=== PATIENT | female | born 1935 | race Caucasian/White ===

== ENCOUNTER → 2024-02-26 12:37 | Outpatient (REF) | payer OTHER, SELFPAY | LOC: HWRCS 12:37 | PROVIDERS: ATTENDING PHYSICIAN Internal Medicine Cardiovascular Disease; FAMILY PHYSICIAN Family Medicine | DX: I34.0 Nonrheumatic mitral (valve) insufficiency (principal) | CPT/HCPCS: 93306 ==

== ENCOUNTER → 2024-06-18 11:53 | Outpatient (REF) | payer OTHER, SELFPAY | LOC: HWRAD 11:53 | PROVIDERS: ATTENDING PHYSICIAN Family Medicine | DX: M25.572 Pain in left ankle and joints of left foot (principal); M79.672 Pain in left foot; M79.605 Pain in left leg | CPT/HCPCS: 73590; 73610; 73630 ==

== ENCOUNTER → 2024-06-24 13:07 | Outpatient (REF) | payer OTHER, SELFPAY | LOC: RAD 13:07 | PROVIDERS: ATTENDING PHYSICIAN Internal Medicine Cardiovascular Disease; FAMILY PHYSICIAN Family Medicine | DX: M79.605 Pain in left leg (principal); M79.604 Pain in right leg; R60.0 Localized edema | CPT/HCPCS: 93925; 93971 ==

== ENCOUNTER 2025-01-12 23:09 | Inpatient (IN) | payer OTHER, SELFPAY ==
[2025-01-12] VITALS (8 sets, daily range): BP systolic 88–207; BP diastolic 39–73
--- NOTE | 2025-01-12 19:58 | ED.GENMED ---
History of Present Illness
<Shaquille Gar PA-C - Last Filed: 01/12/25 23:20>
General
Chief Complaint: Fall
Time Seen by Provider: 01/12/25 19:57
History of Present Illness
History of Present Illness:
89-year-old female presents to the emergency department for evaluation of right hip and leg pain after a fall, was attempting to twist her body when her slipper got stuck on the ground and she fell, striking her buttocks on the ground. No head
strike. Denies headaches or loss of consciousness. Does not take blood thinners. Having intense pain at this time
Past History
<Shaquille Gar PA-C - Last Filed: 01/12/25 23:20>
Past History
ED Past Medical History: CAD, HTN, Hypothyroidism and Other (gout, renal stones)
ED Past Surgical History: Cardiac and Orthopedic
Social History
Tobacco: Non-smoker
Alcohol: None
Drug: None
Personal: Single
Living: with family
Employment: Not employed
Family History
Family History: Other (No significant)
Review of Systems
<Shaquille Gar PA-C - Last Filed: 01/12/25 23:20>
Review of Systems
Allergies reviewed?: Yes
All Other Systems: ROS reviewed and negative except as documented in HPI and ROS
Phy Exam
<Shaquille Gar PA-C - Last Filed: 01/12/25 23:20>
Physical Exam
Physical Exam:
GEN: Well appearing, NAD, WDWN
HEENT: Oral mucosa moist, no scleral icterus
Cardiac: Regular rate
Lung: No respiratory distress, no tachypnea
MSK: Shortening and external rotation of the right lower extremity, right dorsalis pedis pulse is strong, sensation of the right lower extremity intact fully
Skin: Good color, no pallor or jaundice, no rashes
Neuro: AO x3, moves all extremities freely
Psych: Calm, cooperative
Course
<Shaquille Gar PA-C - Last Filed: 01/12/25 23:20>
Orders/Labs/Results
Orders:
Orders
01/12/25 19:57
HYDROmorphone [Dilaudid] 0.5 mg IV NOW STA
CR Hip - RT w/wo Pel 2-3 Vw* Urgent
Comment:
Reason For Exam: fall, R hip injury
Include a pelvis x-ray?: Yes
01/12/25 20:08
Complete Blood Count/With Diff Urgent
01/12/25 20:26
HYDROmorphone [Dilaudid] 0.5 mg IV NOW STA
01/12/25 20:29
Ondansetron Injectable [Zofran] 4 mg IV NOW STA
01/12/25 20:42
Basic Metabolic Panel Urgent
01/12/25 21:07
0.9% Sodium Chloride 500 ml [Nss] 500 ml IV BOLUS
01/12/25 22:20
Admit/Transfer Patient As Directed
Co-Sign Provider:
Level of Care: Inpatient admission
Assign to:: Medical/Surgical
Physician / Group: lee
Diagnosis: right intertrochanteric fracture
Reason for Hospitalization: right intertrochanteric fracture
Expected length of stay greater than two midnights?: Yes
ELOS- Estimated Length of Stay in days: 3
I certify the patient meets the requirements for IP care: Yes
PRN Pain Medication Management As Directed
May give lesser potent ordered pain med per pt: Yes
preference::
Protocol:: Medication orders for pain may be administered in a
manner that supports deferring to patient preference
when the pt is:
- Requesting an ordered lesser potent pain medication.
Least to most potent pain medications are defined
as: acetaminophen < NSAID < tramadol < opioids
(morphine, oxycodone, hydromorphone).
- Requesting a lesser dose of the same medication IF
ORDERED.
- Requesting a less intrusive route of administration
if both routes are prescribed by the provider (PO <
IV).
01/12/25 22:21
Code Status As Directed
Resuscitation Status: Limited DNR
Limited DNR: -No intubation
01/12/25 22:29
EKG [Electrocardiogram (*1)] Stat
Reason for Study: PreOp
EKG [Electrocardiogram (*1)] Urgent
Reason for Study: PreOp
Potassium Urgent
01/12/25 22:53
CARDIOLOGY CONSULT Routine
Consulting Provider: Matthew Shah
Was physician already notified: Yes
Reason for consult: preop clearance
Abnormal Lab Results
01/12/25 01/12/25
20:08 20:42
WBC 11.3 H 10^3/uL
(4.8-10.8)
RBC 3.49 L 10^6/uL
(4.20-5.40)
Hgb 11.2 L g/dL
(12.0-16.0)
Hct 31.6 L %
(37.0-47.0)
MCH 32.1 H pg
(27.0-31.0)
Abs Immat Gran (auto) 0.1 H 10^3/uL
(0-0.05)
Absolute Neuts (auto) 9.3 H 10^3/uL
(1.4-6.5)
Absolute Monos (auto) 0.7 H 10^3/uL
(0.1-0.6)
Neutrophils % 82.3 H %
(42.2-75.2)
Lymphocytes % 10.3 L %
(20.5-51.1)
Sodium 131 L mmol/L
(135-145)
BUN 18 H mg/dl
(7-17)
Glucose 131 H mg/dl
(70-99)
Calcium 8.2 L mg/dl
(8.4-10.2)
01/12/25 20:08
Vital Signs
Initial and Last Documented VS:
Initial Vital Signs
Temp Pulse Resp BP Pulse Ox
97.4 F 78 16 207/73 97
01/12/25 19:34 01/12/25 19:34 01/12/25 19:34 01/12/25 19:34 01/12/25 19:34
Last Documented Vital Signs
Temp Pulse Resp BP Pulse Ox
97.5 F 90 22 126/46 98
01/12/25 22:40 01/12/25 22:40 01/12/25 22:40 01/12/25 22:40 01/12/25 22:40
<Ori Gustafson, DO - Last Filed: 01/12/25 22:23>
Orders/Labs/Results
Orders:
Orders
01/12/25 19:57
HYDROmorphone [Dilaudid] 0.5 mg IV NOW STA
CR Hip - RT w/wo Pel 2-3 Vw* Urgent
Comment:
Reason For Exam: fall, R hip injury
Include a pelvis x-ray?: Yes
01/12/25 20:08
Complete Blood Count/With Diff Urgent
01/12/25 20:26
HYDROmorphone [Dilaudid] 0.5 mg IV NOW STA
01/12/25 20:29
Ondansetron Injectable [Zofran] 4 mg IV NOW STA
01/12/25 20:42
Basic Metabolic Panel Urgent
01/12/25 21:07
0.9% Sodium Chloride 500 ml [Nss] 500 ml IV BOLUS
01/12/25 22:20
Admit/Transfer Patient As Directed
Co-Sign Provider:
Level of Care: Inpatient admission
Assign to:: Medical/Surgical
Physician / Group: lee
Diagnosis: right intertrochanteric fracture
Reason for Hospitalization: right intertrochanteric fracture
Expected length of stay greater than two midnights?: Yes
ELOS- Estimated Length of Stay in days: 3
I certify the patient meets the requirements for IP care: Yes
PRN Pain Medication Management As Directed
May give lesser potent ordered pain med per pt: Yes
preference::
Protocol:: Medication orders for pain may be administered in a
manner that supports deferring to patient preference
when the pt is:
- Requesting an ordered lesser potent pain medication.
Least to most potent pain medications are defined
as: acetaminophen < NSAID < tramadol < opioids
(morphine, oxycodone, hydromorphone).
- Requesting a lesser dose of the same medication IF
ORDERED.
- Requesting a less intrusive route of administration
if both routes are prescribed by the provider (PO <
IV).
01/12/25 22:21
Code Status As Directed
Resuscitation Status: Limited DNR
Limited DNR: -No intubation
01/12/25 22:29
EKG [Electrocardiogram (*1)] Stat
Reason for Study: PreOp
EKG [Electrocardiogram (*1)] Urgent
Reason for Study: PreOp
Potassium Urgent
01/12/25 22:53
CARDIOLOGY CONSULT Routine
Consulting Provider: Matthew Shah
Was physician already notified: Yes
Reason for consult: preop clearance
Abnormal Lab Results
01/12/25 01/12/25
20:08 20:42
WBC 11.3 H 10^3/uL
(4.8-10.8)
RBC 3.49 L 10^6/uL
(4.20-5.40)
Hgb 11.2 L g/dL
(12.0-16.0)
Hct 31.6 L %
(37.0-47.0)
MCH 32.1 H pg
(27.0-31.0)
Abs Immat Gran (auto) 0.1 H 10^3/uL
(0-0.05)
Absolute Neuts (auto) 9.3 H 10^3/uL
(1.4-6.5)
Absolute Monos (auto) 0.7 H 10^3/uL
(0.1-0.6)
Neutrophils % 82.3 H %
(42.2-75.2)
Lymphocytes % 10.3 L %
(20.5-51.1)
Sodium 131 L mmol/L
(135-145)
BUN 18 H mg/dl
(7-17)
Glucose 131 H mg/dl
(70-99)
Calcium 8.2 L mg/dl
(8.4-10.2)
01/12/25 20:08
Vital Signs
Initial and Last Documented VS:
Initial Vital Signs
Temp Pulse Resp BP Pulse Ox
97.4 F 78 16 207/73 97
01/12/25 19:34 01/12/25 19:34 01/12/25 19:34 01/12/25 19:34 01/12/25 19:34
Last Documented Vital Signs
Temp Pulse Resp BP Pulse Ox
97.5 F 90 22 126/46 98
01/12/25 22:40 01/12/25 22:40 01/12/25 22:40 01/12/25 22:40 01/12/25 22:40
<Shaquille Gar PA-C - Last Filed: 11/03/25 23:20>
MDM/Problems Addressed
MDM/Problems Addressed:
Imaging reveals a right inner troches fracture, will admit to medicine for further evaluation and management, orthopedics made aware for surgical intervention
<Shaquille Gar PA-C - Last Filed: 01/12/25 23:20>
*Pulse Oximetry
SaO2: 97
Oxygen Mode of Delivery: Room air
Patient hypoxic: no
*Critical Care Note
Total Time (30-74mins, 75-104mins- exclusive of procedures): Not Applicable
ED Attending Note
<Shaquille Gar PA-C - Last Filed: 01/12/25 23:20>
-
Portions of this chart may have been created with voice recognition software.� Occasional wrong word or��sound alike� substitutions may have occurred due to the inherent limitations of voice recognition software.
<Ori Gustafson DO - Last Filed: 01/12/25 22:23>
ED Attending Note
Patient seen and examined by attending physician: Yes
I performed the substantive portion of visit, reviewed & personally made and approve the management plan that is documented in note by myself or KYLEE.: Yes
ED Attending Note:
I evaluated patient at bedside. The patient appeared uncomfortable upon arrival. She is found to have a intertrochanteric fracture. Will be admitted to the hospital.
Discharge Plan
Departure
Patient Disposition: Admit
Date of Disposition: 01/12/25
Time of Disposition: 21:54
Admit to: Med/Surg
Presentation/result/management discussed w/ accepting MD/DO: Hospitalist
Discharge Problem:
Closed intertrochanteric fracture of right femur
Interventions
Interventions:
*Risk Screen - Suicide Last Done: 01/12/25 19:42
*General Assessment Last Done: 01/12/25 19:42
*Neglect/Abuse Screening Last Done: 01/12/25 19:42
*ED- Fall Risk Assessment Last Done: 01/12/25 19:41
*ED COVID-19 Vaccine History Last Done: 01/12/25 19:41
*ED Influenza Vaccine History Last Done: 01/12/25 19:41
*Nursing Disposition Last Done: 01/12/25 22:40
ED-Musculoskeletal Assessment Last Done: 01/12/25 19:43
ED- Neurological Assessment Last Done: 01/12/25 19:43
ED-Skin Assessment Last Done: 01/12/25 19:43
[2025-01-12] MEDS: DILAUDID 0.5 MG IV ×2 (20:09→20:39)
[2025-01-12 20:14] LABS: Hematocrit 31.6 % (37.0-47.0); Hemoglobin 11.2 g/dL (12.0-16.0); Mean Corp Hgb Conc. 35.4 g/dL (33.0-37.0); Mean Corpuscular Volume 90.5 fL (81.0-99.0); Nucleated Red Blood Cells % 0 %; Platelet Count 198 10^3/uL (130-400); Red Cell Dist. Width 13.0 % (11.5-14.5)
[2025-01-12] MEDS: ZOFRAN 4 MG IV (20:40)
[2025-01-12 21:07] LABS: Blood Urea Nitrogen 18 mg/dl (7-17); Calcium 8.2 mg/dl (8.4-10.2); Carbon Dioxide 26 mmol/L (22-30); Chloride 100 mmol/L (98-107); Estimated Creatinine Clearance 46 ml/min; Glucose 131 mg/dl (70-99); Sodium 131 mmol/L (135-145); eGFR > 60.00
[2025-01-12] MEDS: NSS 500 IV (21:08)
--- NOTE | 2025-01-12 21:55 | HPS.HSE ---
Addendum entered and electronically signed by Peter Boyle DO 01/12/25 23:08:
Patient seen and examined independently. Agree with findings and plan as set forth by GLADYS Armenta.
Patient is an 89y F with PMH significant for ASCVD (LAD stent in 2020), HFpEF and hypertension who presents to ED complaining of R hip pain s/p fall. Patient states that she stumbled on the carpet while 'taking a turn' and fell onto her R side.
Patient was unable to get up unassisted and was on the floor for about one hour before help arrived.
In the ED, she complains of significant R hip pain.
Ass;
Right Hip Fracture
Fall at Home
ASCVD
Chronic HFpEF
Chronic Hyponatremia
Benign Hypertension
Plan:
Admit for further evaluation and treatment.
Bedrest, pain control, supportive care.
Ortho consulted for operative repair.
NPO after midnight for possible OR.
Cardiology consulted for pre-op assessment.
Patient with no recent chest pain, exertional dyspnea or other symptoms suggestive of decompensated cardiac status.
Continue usual medications with holding parameters.
Continue ASA uninterrupted.
Original Note:
Family Physician
-
Family Physician: Kathleen Snell
Chief Complaint
-
fall
History of Present Illness
89-year-old female with PMH for CAD,HTN, hypothyroidism, GOUT, renal stones presents to the emergency department for evaluation of right hip and leg pain after a fall. she was taking a turn and stumbled on the carpet fell on her right side. patient
was on the floor for an hour before she got help. denied FAITH, dizzy or syncope. denied fever, chills,chest pain, sob. denied abdominal pain,n,v,d. denied dysuria or hematuria.
right hip fracture. admitting for further management.
Medical History
Past Medical History
Past Medical History: Reports Other
Additional Past Medical History:
renal calculi, osteoporosis, hypo osmolality and hyponatremia, pulmonary HTN, essential HTN, GERD< GOUT, ND, bundle branch block, CAD
Past Surgical History: Reports Other
Additional Past Surgical History:
left hip replacement, left shoulder surgery, cardiac stents
Social History
Tobacco: Non-smoker
Alcohol: None
Drug: None
Family History
Family History: Not pertinent
Allergies / Home Medications
Allergies reflects when Allergies were last updated in [facility].
Home Medications with original date entered in [facility]
Allergy/Medication List:
Allergies
Allergy/AdvReac Type Severity Reaction Status Date / Time
amoxicillin (Amoxicillin) Allergy Unknown Hives Verified 01/12/25 19:42
amlodipine besylate (From Allergy Unknown Verified 01/12/25 19:42
Norvasc)
clindamycin (Clindamycin) Allergy Unknown Verified 01/12/25 19:42
pamabrom (From Midol) Allergy Unknown Verified 01/12/25 19:42
Penicillins Allergy Unknown Verified 01/12/25 19:42
pyrilamine maleate (From Allergy Unknown Verified 01/12/25 19:42
Midol)
Home Medications
torsemide 5 mg tablet 2.5 mg PO QPM Fluid retention/Swelling 08/29/20
aspirin 81 mg chewable tablet 81 mg PO DAILY 09/01/20
atorvastatin 10 mg tablet 10 mg PO HS High cholesterol 07/14/22
cholecalciferol (vitamin D3) 25 mcg (1,000 unit) tablet 25 mcg PO DAILY Supplement 07/14/22
olmesartan 20 mg tablet 20 mg PO BID #0 tabs 07/15/22
doxazosin 1 mg tablet 1 mg PO HS 01/12/25
famotidine 20 mg tablet 20 mg PO PRN PRN Cytokine Release Syndrome 01/12/25
Review of Systems
-
Constitutional: Reports No Symptoms
EENT: Reports No Symptoms
Respiratory: Reports No Symptoms
Cardiac: Reports No Symptoms
Abdomen/GI: Reports No Symptoms
: Reports No Symptoms
Musculoskeletal: Reports Other (right hip pain)
Skin: Reports No Symptoms
Neurological: Reports No Symptoms
Endocrine: Reports No Symptoms
Hematologic/Lymphatic: Reports No Symptoms
Psych: Reports No Symptoms
Physical Exam
Vital Signs
Vital Signs
Temp Pulse Resp BP Pulse Ox
97.4 F 74 14 107/44 95
01/12/25 19:34 01/12/25 21:15 01/12/25 21:15 01/12/25 21:12 01/12/25 21:15
Physical Exam
General: Well Developed, Well Nourished and No Apparent Distress
HEENT: NormoCephalic, Moist mucous membranes and Atraumatic
Respiratory: Clear
Cardiac: S1/S2 and Regular Rhythm; No Murmur or Rub
GI: Soft, Non Tender, Non Distended and Normal Bowel Sounds; No Organomegaly
Rectal: Deferred by Provider
Musculoskeletal: No Clubbing, No Cyanosis, No Edema and Other (shortening and external rotation of the right LE)
Skin: No Rash
Neuro: Nonfocal/grossly intact
Laboratory Results
-
01/12/25 20:08
01/12/25 20:42
Laboratory Results
Total Bilirubin Cancelled 01/12/25 20:42
AST Cancelled 01/12/25 20:42
ALT Cancelled 01/12/25 20:42
Alkaline Phosphatase Cancelled 01/12/25 20:42
Data Reviewed
-
Lab Data: Labs Reviewed by me
Impression/Plan
-
#right intertrochanteric fracture
-Hip x ray pending
-Tylenol, oxy and Dilaudid prn for pain
-will keep NPO after MN
-orthopedics consulted.
#leukocytosis likely stress reaction
-wbc 11.3, patient is afebrile
-ctm
#chronic hyponatremia
-na 131, ctm
#CAD/cardiac stents
-asa,statin continued
#essential HTN
-doxazosin, olmesartan continued
-on Torsemide
#DVT Prophylaxis
-scd
#CODE status
-CPR, no intubation.
[2025-01-13] VITALS (16 sets, daily range): BP systolic 80–172; BP diastolic 40–87; BMI 21.6
[2025-01-13] MEDS: SENOKOT PO ×2 (00:27→08:58)
[2025-01-13] MEDS: COLACE PO ×2 (00:27→08:58)
[2025-01-13] MEDS: TYLENOL PO ×2 (00:55→03:45)
[2025-01-13] MEDS: DILAUDID 0.25 MG IV ×3 (03:37→16:53)
[2025-01-13 04:19] LABS: Potassium 4.0 mmol/L (3.5-5.1)
[2025-01-13 07:56] LABS: Hematocrit 28.7 % (37.0-47.0); Hemoglobin 9.5 g/dL (12.0-16.0); Mean Corp Hgb Conc. 33.1 g/dL (33.0-37.0); Mean Corpuscular Volume 98.3 fL (81.0-99.0); Platelet Count 189 10^3/uL (130-400); Red Cell Dist. Width 13.0 % (11.5-14.5)
--- NOTE | 2025-01-13 08:06 | W.PN.UPDATE ---
Update Note
Progress Note Update
Full ortho consult to be dicatated.
89 year old female who sustained fall onto right hip yesterday.
-X-rays with intertroch fracture.
-Plan for OR today for right hip gamma nail with Dr. Pickard pending cardiac evaluation for risk stratification.
-Consent signed and placed in chart.
-NPO.
-NWB RLE.
-IV abx manager distribution center to OR.
[2025-01-13 08:31] LABS: Blood Urea Nitrogen 17 mg/dl (7-17); Calcium 8.6 mg/dl (8.4-10.2); Carbon Dioxide 29 mmol/L (22-30); Chloride 99 mmol/L (98-107); Estimated Creatinine Clearance 50 ml/min; Glucose 135 mg/dl (70-99); Potassium 4.5 mmol/L (3.5-5.1); Sodium 131 mmol/L (135-145); eGFR > 60.00
[2025-01-13] MEDS: COZAAR 50 MG PO ×2 (08:58→20:07)
[2025-01-13] MEDS: LOW STRENGTH ASPIRIN 81 MG PO (08:58)
[2025-01-13] MEDS: TYLENOL 650 MG PO ×4 (08:58→22:13)
[2025-01-13 10:13] LABS: Iron 40 ug/dl (37-170)
[2025-01-13 10:14] LABS: Troponin I 0.014 ng/ml
[2025-01-13 10:24] LABS: Total Iron Binding Capacity 329 ug/dl (265-497)
[2025-01-13 10:32] LABS: Vitamin D, 25-OH*** 38.3 ng/mL (30-80)
[2025-01-13 10:45] LABS: Cortisol, Random 21.3 ug/dl; TSH 0.66 uIU/ml (0.47-4.68)
[2025-01-13 10:50] LABS: Ferritin 29.2 ng/ml (11.1-264.0)
--- NOTE | 2025-01-13 10:52 | CON.CAR ---
Addendum entered and electronically signed by Gregor Ewing MD 01/13/25 13:33:
I saw and examined the patient.
The Automotive Services Manager's note was reviewed and I agree with the note.
Comment:
GEN: No distress, awake, Ox3
HEENT: supple, anicteric, mmm
LUNGS: CTA, no wheezes/rales
CV: Reg, S1/S2, 1/6 syst LSB, no murmur
ABD: soft, BS+, NT/ND
EXT: no edema
NEURO: Gross non-focal
SKIN: No rash
PLan:
89-year-old female with past medical history of coronary status post STEMI/left circumflex PCI 2020, moderate mitral regurgitation who presents with a fall and right hip fracture. We are asked to evaluate her as a preop evaluation. From a cardiac
standpoint she overall is done well. She has had no chest pain, shortness of breath and denies any syncope. She is a stable from a cardiac standpoint. Her blood pressure has been stable.
EKG normal sinus rhythm with nonspecific T wave abnormalities.
Echo from 2023 with a preserved ejection fraction and moderate mitral digitation.
She has no unstable cardiac symptoms can proceed to get her hip surgery today. She will be moderate risk. She is placed on telemetry post procedure. Continue aspirin
Continue Cozaar, Cardura, and torsemide.
Discussed with family.
Original Note:
Consultation
Consultation Request
Date/Time Consultation Performed: 01/13/25
Requesting Provider: Dr. Erickson
Performing Provider: Deena London PA-C for Dr. Ewing
Reason for Consultation: preop eval
Medical History
-
Chief Complaint: fall with R hip pain
History of Present Illness:
Patient is an 89-year-old female with past medical history of CAD status post STEMI resulting in circumflex PCI 08/2020, moderate MR, history of sinus bradycardia and syncope on beta-sunny, chronic hyponatremia, hypertension, hypercholesterolemia
who presented to [facility] due to a fall. She reports she was turning and fell on the ground. Was unable to get up due to right hip pain. Was lying on the floor for approximately 1 hour prior to getting help. On arrival noted to have right femur
fracture with plan for OR today. Cardiology consulted for preoperative evaluation. She denies any chest pain, palpitations, or shortness of breath above baseline. Denies recent medication changes.
PMH:
CAD/STEMI s/p Xience PCI mid Circ 08/29/20
Mod MR
History of sinus bradycardia/syncope on beta-sunny
Chronic hyponatremia with history of SIADH
Hypertension
Hypercholesterolemia
Hypothyroidism
Gout
History of renal calculus
Past Medical History
Past Medical History: CAD (Myocardial infarction, STEMI, August 2020 with LAD PCI), HTN, Hypercholesterolemia, Valvular Disease (Moderate mitral regurgitation) and Other (Hyponatremia, gout)
Past Surgical History: Orthopedic (hip surgery 2009)
Social History
Tobacco: Non-Smoker
Alcohol: None
Drug: None
Personal:
Living: With Family
Family History
Family History: Hypertension
Allergies / Home Medications
Allergy/AdvReac Type Severity Reaction Status Date / Time
amoxicillin (Amoxicillin) Allergy Unknown Hives Verified 01/12/25 19:42
amlodipine besylate (From Allergy Unknown Verified 01/12/25 19:42
Norvasc)
clindamycin (Clindamycin) Allergy Unknown Verified 01/12/25 19:42
pamabrom (From Midol) Allergy Unknown Verified 01/12/25 19:42
Penicillins Allergy Unknown Verified 01/12/25 19:42
pyrilamine maleate (From Allergy Unknown Verified 01/12/25 19:42
Midol)
�Medication �Instructions �Recorded �Confirmed �Type
torsemide 5 mg tablet 2.5 mg PO QPM Fluid 08/29/20 01/12/25 History
retention/Swelling
aspirin 81 mg chewable tablet 81 mg PO DAILY 09/01/20 01/12/25 Rx
atorvastatin 10 mg tablet 10 mg PO HS High cholesterol 07/14/22 01/12/25 History
cholecalciferol (vitamin D3) 25 25 mcg PO DAILY Supplement 07/14/22 01/12/25 History
mcg (1,000 unit) tablet
olmesartan 20 mg tablet 20 mg PO BID #0 tabs 07/15/22 01/12/25 Rx
doxazosin 1 mg tablet 1 mg PO HS BPH 01/12/25 01/12/25 History
famotidine 20 mg tablet 20 mg PO PRN PRN Cytokine Release 01/12/25 01/12/25 History
Syndrome
Review of Systems
-
History Source: Patient and Family
All other systems: Negative unless noted
Physical Exam
Vital Signs
Temp Pulse Resp BP Pulse Ox
97.9 F 87 16 139/57 99
01/13/25 07:30 01/13/25 07:30 01/13/25 07:30 01/13/25 07:30 01/13/25 07:30
Lab Results
01/13/25 07:26
01/13/25 07:26
Troponin I 0.014 ng/ml 01/13/25 09:22
Physical Exam
General: No Apparent Distress, Comfortable and Other (on supp O2. frail elderly female)
HEENT: Normocephalic, Anicteric and Moist Mucous Membranes
Respiratory: Non Labored Respirations
Cardiac: S1/S2, Regular Rhythm and Murmur
GI: Soft, Non Tender, Non Distended and Normal Bowel Sounds
Musculoskeletal: No Clubbing, No Cyanosis and No Edema
Skin: Warm and Dry
Neuro: AO x 3
Impression / Plan
-
Primary dry pan charger: Dr. Naylor
Assessment:
Fall
R femur fracture
CAD/STEMI s/p Xience PCI mid Circ 08/29/20
Mod MR
History of sinus bradycardia/syncope on beta-sunny
Chronic hyponatremia with history of SIADH
Hypertension
Hypercholesterolemia
Hypothyroidism
Gout
History of renal calculus
Echo 02/26/2024: EF 55 to 60%, no regional wall motion abnormalities noted, moderate MR, mild TR with PAP 20 to 25 mmHg
Plan:
- Patient presents with a fall and found to have right femur fracture on imaging. Ortho following and is plan for OR today. Cardiology consulted for preoperative evaluation
- She is without complaints of chest pain, palpitations, or worsening shortness of breath
- Reviewed results of last echocardiogram 02/2024 with patient/family at bedside 01/13
- EKG 01/12 sinus rhythm with PACs and nonspecific T wave abnormality
- Continue aspirin 81 mg daily. Hemoglobin 9.5, follow
- Follow volume status postoperatively. On torsemide 2.5 mg every afternoon as outpatient
- Given comorbidities, she is felt to be at moderate cardiovascular risk for procedure, however due to necessity/urgency of procedure, risk is not prohibitive. she is okay to proceed with planned right hip repair as scheduled
- Would place on telemetry postoperatively
- Will follow in postop setting
- Discussed with family at bedside
Data Reviewed
-
EKG: Tracing Personally Visualized and interpreted
Radiology: Report Reviewed by me
Medical Tests (Nuc Med, Echo etc): Report Reviewed by me
Labs: Labs Reviewed by me
Old Records: Reviewed
[2025-01-13 11:05] LABS: Vitamin B12 311 pg/ml (239-931)
--- NOTE | 2025-01-13 12:31 | CON.ORTHO ---
Consultation
-
Date/Time Consultation Requested: 01/12/25
Date/Time Consultation Performed: 01/13/25
Requesting Provider: GLADYS Armenta
Performing Provider: Marie Baig PA-C, for Dr. Zachary Pickard
Reason for Consultation: Right hip intertrochanteric fracture
Consultation - Orthopedics
History
HPI: Francine is an 89-year-old female who presented to [facility] emergency department after sustaining a fall onto her right hip. She reports she was going to turn around and fell on the ground. She was unable to get herself up due to
the right hip pain and was lying on the floor for approximately an hour before she received any help. X-rays taken in the emergency department demonstrated a nondisplaced intertrochanteric fracture of her right hip. Our orthopedic team was
consulted and to discuss definitive management of her fracture going forward.
Past medical history: Significant for myocardial infarction, hypertension, hypercholesterolemia, mitral regurgitation, gout, hyponatremia.
Past surgical history: Left hip hemiarthroplasty in 2009.
Social history: Denies tobacco or alcohol use. Lives at home with her daughter in a two-story home.
Review of systems: All systems reviewed and negative except for those mentioned in HPI.
Allergies / Home Medications
Allergy/AdvReac Type Severity Reaction Status Date / Time
amoxicillin (Amoxicillin) Allergy Unknown Hives Verified 01/12/25 19:42
amlodipine besylate (From Allergy Unknown Verified 01/12/25 19:42
Norvasc)
clindamycin (Clindamycin) Allergy Unknown Verified 01/12/25 19:42
pamabrom (From Midol) Allergy Unknown Verified 01/12/25 19:42
Penicillins Allergy Unknown Verified 01/12/25 19:42
pyrilamine maleate (From Allergy Unknown Verified 01/12/25 19:42
Midol)
�Medication �Instructions �Recorded
torsemide 5 mg tablet 2.5 mg PO QPM Fluid 08/29/20
retention/Swelling
aspirin 81 mg chewable tablet 81 mg PO DAILY 09/01/20
atorvastatin 10 mg tablet 10 mg PO HS High cholesterol 07/14/22
cholecalciferol (vitamin D3) 25 25 mcg PO DAILY Supplement 07/14/22
mcg (1,000 unit) tablet
olmesartan 20 mg tablet 20 mg PO BID #0 tabs 07/15/22
doxazosin 1 mg tablet 1 mg PO HS BPH 01/12/25
famotidine 20 mg tablet 20 mg PO PRN PRN Cytokine Release 01/12/25
Syndrome
Vital Signs / Lab Results
Temp Pulse Resp BP Pulse Ox
97.9 F 87 16 139/57 99
01/13/25 07:30 01/13/25 07:30 01/13/25 07:30 01/13/25 07:30 01/13/25 07:30
01/13/25 07:26
01/13/25 07:26
Physical examination: General: Well-developed, well-nourished female in no acute distress at rest. AAO x 4.
HEENT: Atraumatic, normocephalic, neck supple.
Heart: Regular rate and rhythm.
Lungs: Nonlabored breathing on room air. No audible wheezing.
Right hip: Hip is slightly shortened and externally rotated. Range of motion not tested due to known fracture. Calf is soft and nontender palpation. Neurovascular intact distally.
Radiographic studies:
X-rays of the right femur show evidence of a nondisplaced intertrochanteric fracture of the proximal femur
Assessment / Plan
Assessment: Right hip intertrochanteric fracture.
Plan: Unfortunately, Francine sustained a nondisplaced intertrochanteric fracture of her right femur during her fall. We discussed treatment recommendations going forward to include both nonsurgical and surgical interventions. At this time,
recommendation is to proceed with a right hip ORIF with gamma nail. The plan will be to proceed to the OR later today under the direction of Dr. Pickard pending cardiology evaluation. The surgery was explained in detail along with the associated
risks, benefits, and recovery process. Surgical and blood transfusion consents were signed and placed in the patient's chart. She will remain n.p.o. and nonweightbearing on her right lower extremity until surgery. IV antibiotics on-call to the
OR. Patient was in agreement with treatment recommendations and all questions were answered.
--- NOTE | 2025-01-13 14:21 | W.PN.HOSP.TC ---
Today's Communication/Plan
-
Surgery
Assessment / Plan
Assessment / Plan
89-year-old female with right hip pain after a fall she stumbled on a carpet and fell
CVS: S1-S2 normal, Sm at apex.
Chest: CTA B/L
Abdomen: Soft, NT / Bowel sounds present
Extremities: No edema, right leg externally rotated.
# Traumatic and osteoporotic right hip fracture
Orthopedics consulted for surgery
Cardiology consulted for preop evaluation
Update echo
# Anemia-Borderline B 12 and slightly low iron- Add Both.
# Coronary disease-history of STEMI in August 2020 with LAD PCI-continue aspirin, statin
# Chronic HFpEF- Olmesartan , Torsemide as outpatient. Not on a beta-sunny as OP.
# Valvular heart disease-moderate MR
# Pulmonary hypertension
# Chronic hyponatremia- Check Osm Studies, TSH ,Cortisol
# Hypertension-on Doxazosin, Olmesartan
# Hyperlipidemia-Statin
# History of gout
# History of retinal vein occlusion
# GERD-Famotidine
# DVT prophylaxis-SCDs now and chemical prophylaxis after surgery
# Limited DNR
D/W 2 daughters at bed side
D/W case management.
Part of this note was created using voice recognition system. Occasional wrong word or��sound alike� substitutions may have inadvertently occurred due to the inherent limitations of voice recognition software. If noted kindly bring it to my
attention for correction.
Anticipated Discharge: 24 - 48 hours
Subjective/Interval History
-
Date of Service: January 13, 2025
Objective Data
-
Labs:
Laboratory Results
01/13/25 01/13/25
03:51 07:26
WBC 9.0
Hgb 9.5 L
Hct 28.7 L
Plt Count 189
Sodium 131 L
Potassium 4.0 4.5
Chloride 99
Carbon Dioxide 29
BUN 17
Creatinine 0.6
Glucose 135 H
Calcium 8.6
Vital Signs:
Vital Signs
Temp Pulse Resp BP Pulse Ox
97.9 F 87 16 139/57 99
01/13/25 07:30 01/13/25 07:30 01/13/25 07:30 01/13/25 07:30 01/13/25 07:30
--- NOTE | 2025-01-13 14:31 | CM ---
CM reviewed chart, patient seen bedside with two daughters, initial assessment completed.
Patient is an 89-year-old female presents to the emergency department for evaluation of right hip and leg pain after a fall, was attempting to twist her body when her slipper got stuck on the ground and she fell, striking her buttocks on the ground.
Patient for OR hip fracture.
Patient resides with daughter in a two level home, two steps to enter through front door, bedroom on second floor (normal flight of steps up).
Patient has a commode, rollator, quad cane at home, daughters report patient is typically ambulatory without any device.
Patient has had VN in past, [facility].
SNF hx [facility], do no wish to return.
PCP Kathleen Snell, [facility]acy [facility].
Patient denies insecurities at home.
CM discussed SNF for patient upon d/c- family provided with Medicare.gov to look at local facilities/ratings. Daughters discussing [facility], and [facility], will look into additional SNFS
Patient will require PT/OT post OR- will need referrals for SNF.
Plan; OR, SNF upon d.c
--- NOTE | 2025-01-13 15:54 | W.IMMPOSTOP ---
Surgical Immed Post Op Note
-
Primary Surgeon: Melly
Assisting Surgeon: None
Pre-op Diagnosis: Right hip intertrochanteric fracture
Post-op Diagnosis: Same
Procedure Performed: Right hip Gamma nail
Anesthesia Type: General
Specimen / Cultures: None
Estimated Blood Loss: 20cc
Complications: None
Operative Findings: Dictated [id number]
Plan:
- WBAT RLE
- ASA 81 daily for 30 days
- PT/ OT
[2025-01-13] MEDS: ZOFRAN 4 MG IV (16:15)
[2025-01-13] MEDS: DEMADEX 2.5 MG PO (18:23)
[2025-01-13] MEDS: ASPIRIN 325 MG PO (18:25)
[2025-01-13] MEDS: NORMOSOL-R/PLASMALYTE-A 1000 IV (18:31)
[2025-01-13] MEDS: ROXICODONE 5 MG PO (20:06)
[2025-01-13] MEDS: SENOKOT 17.2 MG PO (20:07)
[2025-01-13] MEDS: COLACE 100 MG PO (20:07)
[2025-01-13] MEDS: CARDURA 1 MG PO (21:28)
[2025-01-13] MEDS: ANCEF 5 IV (21:28)
[2025-01-13] MEDS: LIPITOR 10 MG PO (21:29)
[2025-01-13] MEDS: ANESTHETIC LOZENGE 1 LOZENGE PO (22:14)
--- NOTE | 2025-01-13 22:42 | PTCARENOTE ---
Pt attempted to get OOB with staff to void, sitting on the side of the bed, pt reported feeling dizzy. Pt sat for a few minutes but no change so assisted back into bed. Pt became hypotensive 80/40 and with a brief LOC while laying in bed. Pt feet
elevated and began sighing and opening her eyes. Pt reassessed with BP 110/43 HR 63. Pt talking and making needs known. Pt resting in bed @ this time, call layne within reach
[2025-01-14] VITALS (11 sets, daily range): BP systolic 111–138; BP diastolic 40–55
[2025-01-14] MEDS: ANCEF 5 IV (05:26)
[2025-01-14] MEDS: TYLENOL 650 MG PO ×5 (05:26→23:14)
--- NOTE | 2025-01-14 05:53 | W.PN.ORTHO ---
Today's Communication / Plan
-
89F POD 1 right hip cephalomedullary nail fixation with Dr. Pickard
- Weightbearing as tolerated with walker.
- PT/OT/discharge planning
- Dressings are clean dry and intact. No significant hematoma. Hemoglobin at 6.5 today; per primary consideration of transfusion
- Diet and DVT prophylaxis per primary with recommendation of aspirin daily unless recommended otherwise
- Orthopedic surgery will continue to follow
Assessment
.
Distal Motor Intact: Yes
Dressing:
Clean, dry and intact.
Plan
.
Surgery / Date: Right hip CMN with Dr. Pickard 01/13/2025
DVT Prophylaxis: Aspirin
Activity:
Out of bed.
PT/OT
Subjective
.
.:
Patient resting comfortably.
Vital Signs and Labs
.
Vital Signs and Labs:
Temp Pulse Resp BP Pulse Ox
97.8 F 77 17 119/53 100
01/14/25 03:13 01/14/25 03:13 01/14/25 03:13 01/14/25 03:13 01/14/25 03:13
[2025-01-14 07:14] LABS: Hematocrit 19.2 % (37.0-47.0); Hemoglobin 6.5 g/dL (12.0-16.0); Mean Corp Hgb Conc. 33.9 g/dL (33.0-37.0); Mean Corpuscular Volume 96.5 fL (81.0-99.0); Platelet Count 145 10^3/uL (130-400); Red Cell Dist. Width 13.2 % (11.5-14.5)
[2025-01-14 07:28] LABS: Blood Urea Nitrogen 17 mg/dl (7-17); Calcium 8.0 mg/dl (8.4-10.2); Carbon Dioxide 30 mmol/L (22-30); Chloride 99 mmol/L (98-107); Estimated Creatinine Clearance 38 ml/min; Glucose 121 mg/dl (70-99); Potassium 4.3 mmol/L (3.5-5.1); Sodium 129 mmol/L (135-145); eGFR > 60.00
[2025-01-14] MEDS: COZAAR PO (08:17)
[2025-01-14] MEDS: VITAMIN B-12 1000 MCG PO (08:18)
[2025-01-14] MEDS: SENOKOT 17.2 MG PO (08:18)
[2025-01-14] MEDS: NORMOSOL-R/PLASMALYTE-A 1000 IV (08:18)
[2025-01-14] MEDS: MIRALAX 17 GRAMS PO (08:19)
[2025-01-14] MEDS: COLACE 100 MG PO ×2 (08:19→20:36)
[2025-01-14] MEDS: FEOSOL 325 MG PO (08:19)
[2025-01-14] MEDS: ROXICODONE 5 MG PO (08:31)
[2025-01-14] MEDS: ASPIRIN PO (09:44)
--- NOTE | 2025-01-14 11:04 | W.PN.HOSP.TC ---
Today's Communication/Plan
-
Transfuse
Hold antihypertensives because blood pressure is borderline and patient had a presyncopal event last night
Osmolality studies
If blood pressure improves we will give torsemide tonight
Stop IV fluids
Assessment / Plan
Assessment / Plan
89-year-old female with right hip pain after a fall she stumbled on a carpet and fell
CVS: S1-S2 normal, Sm at apex.
Chest: CTA B/L
Abdomen: Soft, NT / Bowel sounds present
Extremities: Right thigh with edema noted. No bleeding noted at the site of surgery
# Traumatic and osteoporotic right hip fracture
Right hip cephalomedullary nail fixation with Dr. Pickard 01/13/25
Weightbearing as tolerated with walker.
# Anemia-Borderline B 12 and slightly low iron-continue supplementation
Acute blood loss anemia secondary to surgery. Patient right thigh is edematous's today
Transfused 2 units of packed red blood cells.
# Coronary disease-history of STEMI in August 2020 with LAD PCI-continue aspirin, statin
# Chronic HFpEF- Olmesartan , Torsemide as outpatient. Not on a beta-sunny as OP. Hold torsemide and olmesartan today secondary to hypotension. If blood pressure improves can give torsemide at nighttime.
# Valvular heart disease-moderate MR
# Pulmonary hypertension
# Chronic hyponatremia- Check Osm Studies, Normal TSH and Cortisol
# Hypertension-Hold Doxazosin, Olmesartan given hypotension
# Hyperlipidemia-Statin
# History of gout
# History of retinal vein occlusion
# GERD-Famotidine
# DVT prophylaxis-SCDs now and chemical prophylaxis after surgery
# Limited DNR
D/W daughter at bed side
D/W RN at bed side
D/W case management.
Part of this note was created using voice recognition system. Occasional wrong word or��sound alike� substitutions may have inadvertently occurred due to the inherent limitations of voice recognition software. If noted kindly bring it to my
attention for correction.
Anticipated Discharge: 24 - 48 hours
Subjective/Interval History
-
Date of Service: January 14, 2025
Objective Data
-
Labs:
Laboratory Results
01/14/25
06:37
WBC 9.3
Hgb 6.5 L* D
Hct 19.2 L*
Plt Count 145 D
Sodium 129 L
Potassium 4.3
Chloride 99
Carbon Dioxide 30
BUN 17
Creatinine 0.8
Glucose 121 H
Calcium 8.0 L
Vital Signs:
Vital Signs
Temp Pulse Resp BP Pulse Ox
98.2 F 80 16 116/43 100
01/14/25 07:00 01/14/25 07:00 01/14/25 07:00 01/14/25 07:00 01/14/25 07:00
I&O
01/13/25 01/14/25 01/15/25
06:59 06:59 06:59
Intake Total 1630 / 1630
Balance 1630 / 1630
--- NOTE | 2025-01-14 11:05 | CM ---
Addendum entered by Araceli Sahu RN 01/14/25 15:14:
Patient stated that she has been to [facility] and adamantly would not return. Patient would be agreeable to [facility]. Patient would also like to be considered by [facility].
Patient's first choice would be [facility]. CM will refer patient to [facility] and [facility] for Acute Rehab consideration.
Original Note:
Cm reviewed medical records. CM sent preliminary referrals to [facility] and [facility]. PT/OT evaluations delayed due to clinical complications.
PLAN: SNF, pending acceptance.
--- NOTE | 2025-01-14 16:02 | W.PN.CARDCBS ---
Today's Communication / Plan
-
Place on telemetry
Monitor blood pressures with near syncope
Agree with transfusion
Stable CV status
Continue postoperative care
Impression / Plan
-
.
Primary bag end sewer: Dr. Naylor
Impression:
s/p fall, s/p right femur fracture
s/p right hip cephalomedullary nail fixation with Dr. Pickard Jan 13 2025
Acute blood loss anemia
CAD/STEMI s/p Xience PCI mid Circ 08/29/20
Mod MR
History of sinus bradycardia/syncope on beta-sunny
Chronic hyponatremia with history of SIADH
Hypertension
Hypercholesterolemia
Hypothyroidism
Gout
History of renal calculus
Echo 02/26/2024: EF 55 to 60%, no regional wall motion abnormalities noted, moderate MR, mild TR with PAP 20 to 25 mmHg
Plan:
Near syncopal was noted overnight with getting to commode.
Patient placed on telemetry.
Preoperative EKG with sinus rhythm with PACs
Monitor blood pressures. She appears euvolemic. She is on torsemide 2.5 mg every afternoon as an outpatient. If blood pressure improves patient to receive torsemide tonight as per primary service.
Agree with transfusion for acute blood loss anemia.
Discussed with family at bedside
Progress Note - Cup[employer]
Subjective
Date of Service: January 14, 2025
Patient seen and examined. No chest pain or shortness of breath.
Objective
Labs:
01/14/25 06:37
Labs
Hgb 6.5 g/dL (12.0-16.0) L* D 01/14/25 06:37
Hct 19.2 % (37.0-47.0) L* 01/14/25 06:37
Plt Count 145 10^3/uL (130-400) D 01/14/25 06:37
Sodium 129 mmol/L (135-145) L 01/14/25 06:37
Potassium 4.3 mmol/L (3.5-5.1) 01/14/25 06:37
BUN 17 mg/dl (7-17) 01/14/25 06:37
Creatinine 0.8 mg/dL (0.6-1.0) 01/14/25 06:37
Glucose 121 mg/dl (70-99) H 01/14/25 06:37
Troponins
01/13/25
09:22
Troponin I 0.014
Vital Signs and I&O:
Vital Signs
Temp Pulse Resp BP Pulse Ox
98.0 F 84 16 111/41 93
01/14/25 14:53 01/14/25 14:53 01/14/25 14:53 01/14/25 14:53 01/14/25 14:53
Vital Signs
Temp Pulse Resp BP Pulse Ox
98.0 F 84 16 111/41 93
01/14/25 14:53 01/14/25 14:53 01/14/25 14:53 01/14/25 14:53 01/14/25 14:53
Intake & Output
01/12/25 01/13/25 01/14/25 01/15/25
06:59 06:59 06:59 06:59
Intake Total 1630 / 1630 250 / 250
Balance 1630 / 1630 250 / 250
Physical Exam
Physical Exam
General: No acute distress, AAOX3
Neck: Negative JVD
Heart: Regular, Negative S3 positive S1/S2, Negative S4, No murmur
Lungs: CTA b/l, negative wheezes/rales/rhonchi
Abd: Positive BS, NT/ND, neg rebound/rigidity/guarding
Ext: Negative cyanosis/clubbing/edema
Neuro: nonfocal
--- NOTE | 2025-01-14 17:30 | PTCARENOTE ---
Approx 1500 H+H to be drawn 3 hours following end of 2nd unit of PRBCs. Care ongoing.
[2025-01-14] MEDS: SENOKOT PO (20:36)
[2025-01-14] MEDS: LOW STRENGTH ASPIRIN 81 MG PO (20:36)
[2025-01-14] MEDS: TYLENOL PO ×2 (21:00)
[2025-01-14 21:26] LABS: Hematocrit 27.8 % (37.0-47.0); Hemoglobin 9.6 g/dL (12.0-16.0)
[2025-01-14] MEDS: LIPITOR 10 MG PO (23:14)
[2025-01-15] VITALS (9 sets, daily range): BP systolic 98–180; BP diastolic 48–87; PULSE 79–89; BMI 22.3
[2025-01-15] MEDS: TYLENOL PO (05:00)
[2025-01-15 06:45] LABS: Hematocrit 28.5 % (37.0-47.0); Hemoglobin 10.0 g/dL (12.0-16.0); Mean Corp Hgb Conc. 35.1 g/dL (33.0-37.0); Mean Corpuscular Volume 93.8 fL (81.0-99.0); Platelet Count 135 10^3/uL (130-400); Red Cell Dist. Width 14.1 % (11.5-14.5)
--- NOTE | 2025-01-15 07:09 | W.PN.ORTHO ---
Today's Communication / Plan
-
PT/OT
Weightbearing as tolerated with walker
Aspirin/mechanical devices for DVT prophylaxis
Aquacel dressing removed 7 to 10 days postop then leave open to air if no drainage
Skin clip removal 2 weeks postop
Follow-up with orthopedics 1 month postop for x-ray
Orthopedics to sign off for now
Assessment
.
Distal Motor Intact: Yes
Dressing:
Clean, dry and intact.
Plan
.
Surgery / Date: Right hip CMN with Dr. Pickard 01/13/2025
DVT Prophylaxis: Aspirin
Activity:
Out of bed.
PT/OT
Discharge Plan: SNF
Subjective
.
.:
Patient resting comfortably.
Vital Signs and Labs
.
Vital Signs and Labs:
Lab Results
01/15/25 06:30
Temp Pulse Resp BP Pulse Ox
97.4 F 76 17 124/50 95
01/15/25 03:38 01/15/25 03:38 01/15/25 03:38 01/15/25 03:38 01/15/25 03:38
[2025-01-15 07:15] LABS: Blood Urea Nitrogen 15 mg/dl (7-17); Calcium 7.9 mg/dl (8.4-10.2); Carbon Dioxide 29 mmol/L (22-30); Chloride 100 mmol/L (98-107); Estimated Creatinine Clearance 50 ml/min; Glucose 96 mg/dl (70-99); Magnesium 2.0 mg/dl (1.6-2.3); Potassium 3.7 mmol/L (3.5-5.1); Sodium 130 mmol/L (135-145); eGFR > 60.00
--- NOTE | 2025-01-15 08:38 | W.PN.CARDCBS ---
Today's Communication / Plan
-
Near syncope felt to be due to vasovagal episode in the setting of anemia
Check orthostatics
Stable cardiology status
Will sign off
Impression / Plan
-
.
Primary finishing area supervisor: Dr. Naylor
Impression:
s/p fall, s/p right femur fracture
s/p right hip cephalomedullary nail fixation with Dr. Pickard Jan 13 2025
Near-syncope 01/14/2025
Acute blood loss anemia
CAD/STEMI s/p Xience PCI mid Circ 08/29/20
Mod MR
History of sinus bradycardia/syncope on beta-sunny
Chronic hyponatremia with history of SIADH
Hypertension
Hypercholesterolemia
Hypothyroidism
Gout
History of renal calculus
Echo 02/26/2024: EF 55 to 60%, no regional wall motion abnormalities noted, moderate MR, mild TR with PAP 20 to 25 mmHg
Plan:
Near syncope felt to be vasovagal possibly in the setting of blood loss
Stable cardiology status at present
Check orthostatic blood pressures
Hopefully can ambulate today and be stable for either home versus rehab.
Will sign off, call with questions
Progress Note - [employer] Firer/Fireman
Subjective
Date of Service: January 15, 2025
No chest pain or shortness of breath
Objective
Labs:
01/15/25 06:30
01/15/25 06:30
Labs
Hgb 10.0 g/dL (12.0-16.0) L 01/15/25 06:30
Hct 28.5 % (37.0-47.0) L 01/15/25 06:30
Plt Count 135 10^3/uL (130-400) 01/15/25 06:30
Sodium 130 mmol/L (135-145) L 01/15/25 06:30
Potassium 3.7 mmol/L (3.5-5.1) 01/15/25 06:30
BUN 15 mg/dl (7-17) 01/15/25 06:30
Creatinine 0.6 mg/dL (0.6-1.0) 01/15/25 06:30
Glucose 96 mg/dl (70-99) 01/15/25 06:30
Troponins
01/13/25
09:22
Troponin I 0.014
Vital Signs and I&O:
Vital Signs
Temp Pulse Resp BP Pulse Ox
98.0 F 79 16 125/69 96
01/15/25 08:12 01/15/25 08:12 01/15/25 08:12 01/15/25 08:12 01/15/25 08:12
Vital Signs
Temp Pulse Resp BP Pulse Ox
98.0 F 79 16 125/69 96
01/15/25 08:12 01/15/25 08:12 01/15/25 08:12 01/15/25 08:12 01/15/25 08:12
Intake & Output
01/13/25 01/14/25 01/15/25 01/16/25
06:59 06:59 06:59 06:59
Intake Total 1630 / 1630 500 / 500
Balance 1630 / 1630 500 / 500
Physical Exam
Physical Exam
General: Well developed, well nourished in NAD.
Neck: Supple, no JVD, HJR, carotids +2 B/L, no bruits bilaterally.
Heart: Non displaced PMI, RRR, no murmurs, No S3, S4, no rubs.
Lungs: Clear to auscultation bilaterally, no wheeze, rhonchi, rubs bilaterally,
normal expiratory phase.
Extremities: No clubbing, cyanosis or edema bilaterally.
Neuro: Grossly nonfocal, awake, alert and oriented x3.
[2025-01-15] MEDS: DEMADEX 2.5 MG PO ×2 (09:06→18:09)
[2025-01-15] MEDS: TYLENOL 650 MG PO (09:07)
[2025-01-15] MEDS: COLACE 100 MG PO (09:07)
[2025-01-15] MEDS: LOW STRENGTH ASPIRIN 81 MG PO ×2 (09:07→20:50)
[2025-01-15] MEDS: FEOSOL 325 MG PO (09:07)
[2025-01-15] MEDS: VITAMIN B-12 1000 MCG PO (09:07)
[2025-01-15] MEDS: SENOKOT 17.2 MG PO (09:07)
[2025-01-15] MEDS: MIRALAX 17 GRAMS PO (09:08)
--- NOTE | 2025-01-15 11:23 | W.PN.HOSP.TC ---
Today's Communication/Plan
-
Restarted losartan and torsemide as supine blood pressure is high
Patient wear abdominal binder and TANA stockings while working with PT for orthostatic hypotension
Tylenol changed to scheduled doses and also lidocaine patch added. Patient is very hesitant to take pain medicines yet complaining of pain. Discussed that pain will be worse in the initial days and encouraged her to use medicines as needed.
Assessment / Plan
Assessment / Plan
89-year-old female with right hip pain after a fall she stumbled on a carpet and fell
CVS: S1-S2 normal, Sm at apex.
Chest: CTA B/L
Abdomen: Soft, NT / Bowel sounds present
Extremities: Right thigh with edema noted. No bleeding noted at the site of surgery
# Traumatic and osteoporotic right hip fracture
Right hip cephalomedullary nail fixation with Dr. Pickard 01/13/25
Weightbearing as tolerated with walker.
Patient does not want to take medicines for pain but complaining of pain.
We discussed that she needs to take medicines initially I think she has mild SIADH which will be worse with pain
# Anemia-Borderline B 12 and slightly low iron-continue supplementation
Acute blood loss anemia secondary to surgery. Patient right thigh is edematous's today
Transfused 2 units of packed red blood cells.
Hb Stable
# Orthostatic [id number] needs to use abdominal binder and TANA stockings while working with PT
# Coronary disease-history of STEMI in August 2020 with LAD PCI-continue aspirin, statin echo was canceled per cardiology.
# Chronic HFpEF- Olmesartan , Torsemide as outpatient. Not on a beta-sunny as OP. Torsemide restarted.
# Valvular heart disease-moderate MR
# Pulmonary hypertension
# Chronic hyponatremia- Check Osm Studies, Normal TSH and Cortisol
# Hypertension-Hold Doxazosin, restart Olmesartan
# Hyperlipidemia-Statin
# History of gout
# History of retinal vein occlusion
# GERD-Famotidine
# DVT prophylaxis-SCDs now and chemical prophylaxis after surgery
# Limited DNR
Discussed with cardiology.
D/W RN at bed side
D/W case management.
Part of this note was created using voice recognition system. Occasional wrong word or��sound alike� substitutions may have inadvertently occurred due to the inherent limitations of voice recognition software. If noted kindly bring it to my
attention for correction.
Anticipated Discharge: 24 - 48 hours
Subjective/Interval History
-
Date of Service: January 15, 2025
Objective Data
-
Labs:
Laboratory Results
01/15/25
06:30
WBC 10.6
Hgb 10.0 L
Hct 28.5 L
Plt Count 135
Sodium 130 L
Potassium 3.7
Chloride 100
Carbon Dioxide 29
BUN 15
Creatinine 0.6
Glucose 96
Calcium 7.9 L
Vital Signs:
Vital Signs
Temp Pulse Resp BP Pulse Ox
98.0 F 79 16 125/69 96
01/15/25 08:12 01/15/25 08:12 01/15/25 08:12 01/15/25 08:12 01/15/25 08:12
I&O
01/14/25 01/15/25 01/16/25
06:59 06:59 06:59
Intake Total 1630 / 1630 500 / 500
Balance 1630 / 1630 500 / 500
[2025-01-15] MEDS: MILK OF MAGNESIA 30 ML PO (12:09)
[2025-01-15] MEDS: COZAAR 50 MG PO ×2 (12:15→20:50)
[2025-01-15] MEDS: LIDOCAINE 4% PATCH 1 PATCH TOPICAL (12:15)
[2025-01-15] MEDS: TYLENOL 1000 MG PO ×2 (13:33→21:50)
--- NOTE | 2025-01-15 13:58 | PTCARENOTE ---
Abdominal binder applied. Care ongoing.
[2025-01-15] MEDS: ROXICODONE 5 MG PO (15:58)
[2025-01-15] MEDS: COLACE PO (20:46)
[2025-01-15] MEDS: REMOVE LIDOCAINE PATCH 1 PATCH REMOVE (20:47)
[2025-01-15] MEDS: SENOKOT PO (21:01)
[2025-01-15] MEDS: LIPITOR 10 MG PO (21:50)
[2025-01-16 03:17] VITALS: BP 133/57
[2025-01-16] MEDS: TYLENOL 1000 MG PO ×3 (05:20→21:33)
[2025-01-16 06:00] VITALS: BMI 22.3
[2025-01-16 07:00] VITALS: BP 146/54
[2025-01-16 07:09] LABS: Hematocrit 26.9 % (37.0-47.0); Hemoglobin 9.4 g/dL (12.0-16.0); Mean Corp Hgb Conc. 34.9 g/dL (33.0-37.0); Mean Corpuscular Volume 92.4 fL (81.0-99.0); Platelet Count 147 10^3/uL (130-400); Red Cell Dist. Width 13.7 % (11.5-14.5)
[2025-01-16 07:47] LABS: Blood Urea Nitrogen 15 mg/dl (7-17); Calcium 7.7 mg/dl (8.4-10.2); Carbon Dioxide 29 mmol/L (22-30); Chloride 100 mmol/L (98-107); Estimated Creatinine Clearance 50 ml/min; Glucose 90 mg/dl (70-99); Potassium 3.6 mmol/L (3.5-5.1); Sodium 132 mmol/L (135-145); eGFR > 60.00
[2025-01-16] MEDS: FEOSOL 325 MG PO (09:57)
[2025-01-16] MEDS: COLACE PO (09:57)
[2025-01-16] MEDS: SENOKOT PO ×2 (09:57→21:33)
[2025-01-16] MEDS: LOW STRENGTH ASPIRIN 81 MG PO ×2 (09:57→21:33)
[2025-01-16] MEDS: MIRALAX PO (09:57)
[2025-01-16] MEDS: COZAAR 50 MG PO ×2 (09:58→21:33)
[2025-01-16] MEDS: LIDOCAINE 4% PATCH 1 PATCH TOPICAL (09:59)
[2025-01-16] MEDS: VITAMIN B-12 1000 MCG PO (09:59)
[2025-01-16 11:00] VITALS: BP 157/54
[2025-01-16] MEDS: ROXICODONE 5 MG PO (11:05)
[2025-01-16 11:52] VITALS: BP 134/59; BP 138/86; BP 139/61; PULSE 85; PULSE 88; O2SAT 97
--- NOTE | 2025-01-16 14:09 | W.PN.HOSP.TC ---
Today's Communication/Plan
-
Discharge planning
Assessment / Plan
Assessment / Plan
89-year-old female with right hip pain after a fall she stumbled on a carpet and fell
CVS: S1-S2 normal, Sm at apex.
Chest: CTA B/L
Abdomen: Soft, NT / Bowel sounds present
Extremities: Right thigh with edema noted. No bleeding noted at the site of surgery
# Traumatic and osteoporotic right hip fracture
Right hip cephalomedullary nail fixation with Dr. Pickard 01/13/25
Weightbearing as tolerated with walker.
Pain is better controlled with the current regimen
# Anemia-Borderline B 12 and slightly low iron-continue supplementation
Acute blood loss anemia secondary to surgery. Patient right thigh is edematous's today
Transfused 2 units of packed red blood cells.
Hb Stable
# Orthostatic [id number] needs to use abdominal binder and TANA stockings while working with PT. symptoms much better today
# Coronary disease-history of STEMI in August 2020 with LAD PCI-continue aspirin, statin echo was canceled per cardiology.
# Chronic HFpEF- Olmesartan , Torsemide as outpatient. Not on a beta-sunny as OP. Torsemide restarted.
# Valvular heart disease-moderate MR
# Pulmonary hypertension
# Chronic hyponatremia- Check Osm Studies, Normal TSH and Cortisol
# Hypertension- Doxazosin on hold., Olmesartan
# Hyperlipidemia-Statin
# History of gout
# History of retinal vein occlusion
# GERD-Famotidine
# DVT prophylaxis-SCDs now and chemical prophylaxis after surgery
# Limited DNR
Discussed with daughter at bedside
D/W RN at bed side
D/W case management.
Part of this note was created using voice recognition system. Occasional wrong word or��sound alike� substitutions may have inadvertently occurred due to the inherent limitations of voice recognition software. If noted kindly bring it to my
attention for correction.
Anticipated Discharge: Within 24 hours
Subjective/Interval History
-
Date of Service: January 16, 2025
Objective Data
-
Labs:
Laboratory Results
01/16/25
06:30
WBC 9.6
Hgb 9.4 L
Hct 26.9 L
Plt Count 147
Sodium 132 L
Potassium 3.6
Chloride 100
Carbon Dioxide 29
BUN 15
Creatinine 0.6
Glucose 90
Calcium 7.7 L
Vital Signs:
Vital Signs
Temp Pulse Resp BP Pulse Ox
98.9 F 81 14 157/54 97
01/16/25 11:00 01/16/25 11:00 01/16/25 11:00 01/16/25 11:00 01/16/25 11:00
I&O
01/15/25 01/16/25 01/17/25
06:59 06:59 06:59
Intake Total 500 / 500 420 / 420 480 / 480
Balance 500 / 500 420 / 420 480 / 480
[2025-01-16 15:00] VITALS: BP 130/72; BP 135/81; BP 172/54; PULSE 82
[2025-01-16] MEDS: KCL 20 MEQ PO (15:00)
--- NOTE | 2025-01-16 16:48 | W.PN.CARDCBS ---
Addendum entered and electronically signed by Dwight Luna MD 01/16/25 17:44:
I saw and examined the patient.
The Pediatric Cardiologist's note was reviewed and I agree with the note.
Comment: Briefly, 89-year-old woman presenting after a mechanical fall found to have right hip fracture now status post fixation 01/13/2025
Postprocedure patient was hypotensive with positive orthostatic vital signs
Suspect some of this may be related to acute blood loss anemia as well as anesthesia and pain medications
Blood pressure has improved today
Would resume home antihypertensives and diuretic to start tomorrow
Stable cardiac status, we will sign off
Original Note:
Today's Communication / Plan
-
Continue postop care
Follow orthostatic vital signs
Resume outpatient Cardura tomorrow evening
PT/OT
Plan for SNF in a.m.
Impression / Plan
-
.
Primary intensive care anaesthetist: Dr. Naylor
Impression:
s/p fall, s/p right femur fracture
s/p right hip cephalomedullary nail fixation with Dr. Pickard Jan 13 2025
Near-syncope 01/14/2025
Acute blood loss anemia
CAD/STEMI s/p Xience PCI mid Circ 08/29/20
Mod MR
History of sinus bradycardia/syncope on beta-sunny
Chronic hyponatremia with history of SIADH
Hypertension
Hypercholesterolemia
Hypothyroidism
Gout
History of renal calculus
Echo 02/26/2024: EF 55 to 60%, no regional wall motion abnormalities noted, moderate MR, mild TR with PAP 20 to 25 mmHg
Plan:
-continued progress
-hgb 9.4 on 01/16. required 1 U PRBCs earlier in stay for hgb 6.5
-ortho VS improving, continue to follow
-OP cardura on hold, plan to resume tomorrow evening. on arb, torsemide 2.5mg daily
-replete K
-In sinus rhythm with 2 brief runs of atrial tach overnight on review of telemetry. Telemetry has since been discontinued
-continue post op care
-plan for SNF tomorrow
-will arrange OP cardiac follow up
-d/w nursing
Progress Note - Match Up Worker
Subjective
Date of Service: January 16, 2025
Patient reports occasional dizziness, but improving. No chest pain or shortness of breath
Objective
Labs:
01/16/25 06:30
01/16/25 06:30
Labs
Hgb 9.4 g/dL (12.0-16.0) L 01/16/25 06:30
Hct 26.9 % (37.0-47.0) L 01/16/25 06:30
Plt Count 147 10^3/uL (130-400) 01/16/25 06:30
Sodium 132 mmol/L (135-145) L 01/16/25 06:30
Potassium 3.6 mmol/L (3.5-5.1) 01/16/25 06:30
BUN 15 mg/dl (7-17) 01/16/25 06:30
Creatinine 0.6 mg/dL (0.6-1.0) 01/16/25 06:30
Glucose 90 mg/dl (70-99) 01/16/25 06:30
Vital Signs and I&O:
Vital Signs
Temp Pulse Resp BP Pulse Ox
98 F 82 18 135/81 98
01/16/25 15:00 01/16/25 15:00 01/16/25 15:00 01/16/25 15:00 01/16/25 15:00
Vital Signs
Temp Pulse Resp BP Pulse Ox
98 F 82 18 135/81 98
01/16/25 15:00 01/16/25 15:00 01/16/25 15:00 01/16/25 15:00 01/16/25 15:00
Intake & Output
01/14/25 01/15/25 01/16/25 01/17/25
07:59 07:59 07:59 07:59
Intake Total 1630 / 1630 500 / 500 420 / 420 480 / 480
Balance 1630 / 1630 500 / 500 420 / 420 480 / 480
Physical Exam
Physical Exam
GEN: No distress, awake, alert, oriented x3. Sitting in chair
HEENT: supple, anicteric, mmm
LUNGS: CTA bilaterally, no wheezes/rales
CV: Reg, S1/S2, no murmur
ABD: soft, BS+, NT/ND
EXT: No cyanosis, clubbing, edema
NEURO: Gross non-focal
SKIN: Warm, pink, dry. No rash
[2025-01-16] MEDS: DEMADEX 2.5 MG PO (17:08)
--- NOTE | 2025-01-16 17:49 | CM ---
F/U: HONEY Cueva learned that patient is ready tomorrow for DC. HONEY Cueva obtained authorization:
From [place] [id number]
Auth: #[id number]
5 days
01/17 to 01/21
NRD: 01/21 to P:[phone]
[facility] Auth: #[id number]
All this given to Darlyn the Liaison. Transport arranged for 1-2pm. Going to:
[facility]
Report: #[phone]
Fax: #[phone]
Hospitalist aware as well as Patient/Family aware and IMM completed. PLAN: SNF at [facility].
[2025-01-16] MEDS: COLACE 100 MG PO (21:33)
[2025-01-16] MEDS: LIPITOR 10 MG PO (21:33)
[2025-01-16] MEDS: REMOVE LIDOCAINE PATCH 1 PATCH REMOVE (21:34)
[2025-01-16 23:00] VITALS: BP 174/73
[2025-01-17 06:00] VITALS: BMI 22.4
[2025-01-17] MEDS: TYLENOL 1000 MG PO ×2 (06:30→15:00)
[2025-01-17 07:30] VITALS: BP 175/74
[2025-01-17] MEDS: LIDOCAINE 4% PATCH 1 PATCH TOPICAL (09:15)
[2025-01-17] MEDS: COZAAR 50 MG PO (09:16)
[2025-01-17] MEDS: VITAMIN B-12 1000 MCG PO (09:16)
[2025-01-17] MEDS: FEOSOL 325 MG PO (09:16)
[2025-01-17] MEDS: SENOKOT PO (09:16)
[2025-01-17] MEDS: MIRALAX PO (09:16)
[2025-01-17] MEDS: LOW STRENGTH ASPIRIN 81 MG PO (09:16)
[2025-01-17] MEDS: COLACE 100 MG PO (09:17)
--- NOTE | 2025-01-17 11:00 | W.PN.HOSP.TC ---
Addendum entered and electronically signed by Fish Erickson MD 01/17/25 11:17:
Per daughter patient takes doxazosin 0.5 mg alternating with 1 mg every other night.
Blood pressure started coming up now we were holding doxazosin for orthostasis.
Repeat blood pressure
Pain is also likely contributing to it and patient does not want to take oxycodone.
Original Note:
Today's Communication/Plan
-
Dischjarge
Assessment / Plan
Assessment / Plan
89-year-old female with right hip pain after a fall she stumbled on a carpet and fell
CVS: S1-S2 normal, Sm at apex.
Chest: CTA B/L
Abdomen: Soft, NT / Bowel sounds present
Extremities: Right thigh with edema noted. No bleeding noted at the site of surgery
# Traumatic and osteoporotic right hip fracture
Right hip cephalomedullary nail fixation with Dr. Pickard 01/13/25
Weightbearing as tolerated with walker.
Pain is better controlled with the current regimen
# Anemia-Borderline B 12 and slightly low iron-continue supplementation
Acute blood loss anemia secondary to surgery. Patient right thigh is edematous's today
Transfused 2 units of packed red blood cells.
Hb Stable
# Orthostatic gfrbocehfsz-wtjbvsthwpe-gezlyui needs to use abdominal binder and TANA stockings while working with PT. symptoms much better today
# Coronary disease-history of STEMI in August 2020 with LAD PCI-continue aspirin, statin echo was canceled per cardiology.
# Chronic HFpEF- Olmesartan , Torsemide as outpatient. Not on a beta-sunny as OP. Torsemide restarted.
# Valvular heart disease-moderate MR
# Pulmonary hypertension
# Chronic hyponatremia-better
# Hypertension- Doxazosin restarted., Olmesartan to be continued
# Hyperlipidemia-Statin
# History of gout
# History of retinal vein occlusion
# GERD-Famotidine takes only as needed. Add a dose of Protonix and Maalox as she has Acid reflux symptoms.
# DVT prophylaxis-SCDs now and chemical prophylaxis after surgery
# Limited DNR
D/W RN at bed side
D/W case management.
More than 30 minutes spent in discharge including
Final examination of the patient
Summarizing hospital stay
Instructions for continuing care to all relevant caregivers
Preparation of discharge records, prescriptions, and referral forms
Part of this note was created using voice recognition system. Occasional wrong word or��sound alike� substitutions may have inadvertently occurred due to the inherent limitations of voice recognition software. If noted kindly bring it to my
attention for correction.
Anticipated Discharge: Today
Subjective/Interval History
-
Date of Service: January 17, 2025
Objective Data
-
Vital Signs:
Vital Signs
Temp Pulse Resp BP Pulse Ox
98.5 F 80 16 175/74 97
01/17/25 07:30 01/17/25 07:30 01/17/25 07:30 01/17/25 07:30 01/17/25 07:30
I&O
01/16/25 01/17/25 01/18/25
06:59 06:59 06:59
Intake Total 420 / 420 480 / 480
Balance 420 / 420 480 / 480
[2025-01-17 11:15] VITALS: BP 162/62
[2025-01-17] MEDS: PEPCID 20 MG PO (11:28)
[2025-01-17] MEDS: MAALOX 30 ML PO (11:29)
[2025-01-17] MEDS: ROXICODONE 5 MG PO (12:43)
[2025-01-17 13:48] VITALS: BP 168/58
--- NOTE | 2025-01-17 15:14 | W.DS.TRANS ---
Addendum entered and electronically signed by Fish Erickson MD 01/17/25 15:17:
Dictation- [id number]
Original Note:
DC Summary - Guardian Family Member
-
Discharge Instructions:
Discharge Diagnosis/Procedures Right hip fracture status post cephalomedullary
nail fixation by Dr. Pickard on 01/13/2025
Anemia
Borderline B12
Orthostatic hypotension
Coronary artery disease
Chronic HFpEF
Valvular heart disease-moderate MR
Pulmonary hypertension
Chronic hyponatremia
Hypertension
Hyperlipidemia
History of gout
GERD
Diet Low Sodium,Restrict fluids to 64 oz
Activity As tolerated
Driving Restrictions No driving
Other Services PT,OT
Specialty Instructions Weigh Daily
Instructions:
Stand-Alone Forms:
Changes to Home Medications: Yes
Discharge Medications:
DC Medications w/original date entered in [employer]
torsemide 5 mg tablet 2.5 mg PO QPM Fluid retention/Swelling 08/29/20
atorvastatin 10 mg tablet 10 mg PO HS High cholesterol 07/14/22
cholecalciferol (vitamin D3) 25 mcg (1,000 unit) tablet 25 mcg PO DAILY Supplement 07/14/22
acetaminophen 500 mg tablet (Tylenol Extra Strength) 1,000 mg (2 x 500 mg) PO Q8H Pain #0 tabs 01/17/25
aspirin 81 mg chewable tablet 81 mg PO BID Blood clot prevention/tx #0 tabs 01/17/25
cyanocobalamin (vitamin B-12) 500 mcg tablet 1,000 mcg (2 x 500 mcg) PO DAILY low normal #0 tabs 01/17/25
docusate sodium 100 mg capsule 100 mg PO BID Constipation #0 caps 01/17/25
doxazosin 1 mg tablet 0.5 mg (1/2 x 1 mg) PO Q48H Blood pressure #0 tabs 01/17/25
doxazosin 1 mg tablet 1 mg PO Q48H Blood pressure #0 tabs 01/17/25
famotidine 20 mg tablet 20 mg PO BID heart burn #0 tabs 01/17/25
ferrous sulfate 325 mg (65 mg iron) tablet (FeroSul) 325 mg PO DAILY anemia #0 tabs 01/17/25
lidocaine 4 % topical patch 1 patch topical DAILY Pain #0 ea 01/17/25
olmesartan 20 mg tablet 20 mg PO BID Blood pressure #0 tabs 01/17/25
oxycodone 5 mg tablet 5 mg PO Q6H PRN moderate pain #10 tabs 01/17/25
polyethylene glycol 3350 17 gram oral powder packet 17 g PO DAILY Constipation #0 ea 01/17/25
sennosides 8.6 mg tablet (Annamaria-joann) 17.2 mg (2 x 8.6 mg) PO HS #0 tabs 01/17/25
Home Medication Changes
new
ferrous sulfate 325 mg (65 mg iron) tablet (FeroSul) 325 mg PO DAILY anemia #0 tabs 01/17/25
lidocaine 4 % topical patch 1 patch topical DAILY Pain #0 ea 01/17/25
oxycodone 5 mg tablet 5 mg PO Q6H PRN moderate pain #10 tabs 01/17/25
polyethylene glycol 3350 17 gram oral powder packet 17 g PO DAILY Constipation #0 ea 01/17/25
sennosides 8.6 mg tablet (Annamaria-joann) 17.2 mg (2 x 8.6 mg) PO HS #0 tabs 01/17/25
Pending Results: No
[2025-01-17 15:25] VITALS: BP 158/56
--- NOTE | 2025-01-17 15:52 | PTCARENOTE ---
Right thigh and hip dressing rolling off-new primaseal dressing placed prior to discharge.
== END 2025-01-17 15:57 | DRG 481 ==
LOC: 2 SOUTH 23:09
PROVIDERS: Nurse Practitioner Family; Physician Assistant; ADMITTING PHYSICIAN Hospitalist; ATTENDING PHYSICIAN Hospitalist; CONSULT PHYSICIAN Orthopaedic Surgery; EMERGENCY PHYSICIAN Emergency Medicine; FAMILY PHYSICIAN Family Medicine; OTHER PHYSICIAN Internal Medicine Cardiovascular Disease
PROC: 0QS606Z Reposition Right Upper Femur with Intramedullary Internal Fixation Device, Open Approach (ICD-10-PCS; 2025-01-13)
PROC: 30233N1 Transfusion of Nonautologous Red Blood Cells into Peripheral Vein, Percutaneous Approach (ICD-10-PCS; 2025-01-14)
DX: M80.051A Age-related osteoporosis with current pathological fracture, right femur, initial encounter for fracture (principal); E87.1 Hypo-osmolality and hyponatremia; I50.32 Chronic diastolic (congestive) heart failure; D64.9 Anemia, unspecified; I95.1 Orthostatic hypotension; I25.10 Atherosclerotic heart disease of native coronary artery without angina pectoris; I11.0 Hypertensive heart disease with heart failure; I34.0 Nonrheumatic mitral (valve) insufficiency; I27.20 Pulmonary hypertension, unspecified; E78.00 Pure hypercholesterolemia, unspecified; K21.9 Gastro-esophageal reflux disease without esophagitis; W01.0XXA Fall on same level from slipping, tripping and stumbling without subsequent striking against object, initial encounter; E03.9 Hypothyroidism, unspecified; Z87.442 Personal history of urinary calculi; Z96.642 Presence of left artificial hip joint; I25.2 Old myocardial infarction; Z88.0 Allergy status to penicillin; Z79.82 Long term (current) use of aspirin; D72.829 Elevated white blood cell count, unspecified; Z88.1 Allergy status to other antibiotic agents; Z95.5 Presence of coronary angioplasty implant and graft; Z79.899 Other long term (current) drug therapy
CPT/HCPCS: 73502; 76000; 80048; 82306; 82533; 82607; 82728; 83540; 83550; 83735; 83930; 83935; 84132; 84300; 84443; 84484; 85014; 85018; 85025; 85027; 86850; 86900; 86901; 86920; 93005; 96361; 96374; 96375; 96376; 97110; 97116; 97163; 97167; 97530; 97535; 99285; C1713; C1769; P9016